=== PATIENT | male | born 1965 | race American Indian/Alaskan Native ===

== ENCOUNTER 2016-10-30 09:18 | Emergency (ER) | payer OTHER ==
--- NOTE | 2016-10-30 10:07 | Emergency Department Report ---
Chief Complaint: Hyperglycemia Stated Complaint: DRY MOUTH /FATIGUE Time Seen by Provider: 10/30/16 09:57 - HPI History of Present Illness: 51-year-old -[place] male comes in for hyperglycemia. Patient reports that he starts urinating a lot and thirsty 2 weeks. He does have a past medical history of hypertension and borderline diabetes. He does report he is not very compliant on his hypertensive medicine which she is now on by systolic tenderness over by mouth daily. Blood pressure in triage is 171/113. Denies headache chest pain shortness of breathing. - Exam Vital Signs: Vital Signs 10/30/16 09:51 Temperature 98.2 F Pulse Rate 96 H Respiratory 20 Rate Blood Pressure 171/113 O2 Sat by Pulse 100 Oximetry Physical Exam: Patient alert and oriented 3. Cardio: Mild tachycardic no murmurs appreciated S1 and S2 Respiratory: Clear to auscultation bilateral Abdomen: Soft nontender nondistended normal bowel sounds Extremities: No edema appreciated MSE screening note: Focused history and physical exam performed. Due to findings the following was ordered: Patient has been evaluated by this provider and MSE. Triage protocol for hyperglycemia was initiated. Patient will be evaluated by the main ER docs. ED Disposition for MSE Condition: Stable
[2016-10-30 10:33] LABS: Basophils % (Auto) 0.7 % (0.0-1.8); Eosinophils % (Auto) 2.9 % (0.0-4.3); Hematocrit 49.2 % (35.5-45.6); Hemoglobin 16.5 gm/dl (11.8-15.2); Mean Corpuscular HGB Conc 34 % (32-34); Mean Corpuscular Hemoglobin 29 pg (28-32); Mean Corpuscular Volume 87 fl (84-94); Platelet Count 162 K/mm3 (140-440); Red Blood Count 5.64 M/mm3 (3.65-5.03); Red Cell Distribution Width 13.2 % (13.2-15.2); White Blood Count 6.7 K/mm3 (4.5-11.0)
[2016-10-30 10:43] LABS: Bacteria,Urine 1+ /HPF (Negative); Bilirubin,Urine NEG (Negative); Blood,Urine SM (Negative); Ketones,Urine TR mg/dL (Negative); Leukocyte Esterase,Urine NEG (Negative); Nitrite,Urine NEG (Negative); Protein,Urine <15 mg/dL mg/dL (Negative); Urobilinogen,Urine < 2.0 mg/dL (<2.0)
[2016-10-30 10:50] LABS: Anion Gap 24 mmol/L; B-Hydroxybutyrate 14.1 mg/dL (0.2-2.8); BUN/Creatinine Ratio 15.55; Blood Urea Nitrogen 14 mg/dL (9-20); Carbon Dioxide 21 mmol/L (22-30); Chloride 95.7 mmol/L (98-107); Glucose 433 mg/dL (75-100); Potassium 4.9 mmol/L (3.6-5.0); Sodium 136 mmol/L (137-145)
[2016-10-30] MEDS ORDERED: NACL 0.9% 1000 ML 2,000 ML ONE (10:52)
--- NOTE | 2016-10-30 11:04 | Emergency Department Report ---
ED General Adult HPI - General Chief complaint: Hyperglycemia Stated complaint: DRY MOUTH /FATIGUE Time Seen by Provider: 10/30/16 09:57 Source: patient, RN notes reviewed Mode of arrival: Ambulatory Limitations: No Limitations - History of Present Illness Initial comments: This is a 51-year-old male. He's previously unknown to me. His primary care doctor is Dr. Gama Owens. Past medical history of hypertension and diabetes. Reports taking metformin 500 mg twice daily. Patient presents to the ER complaining of hyperglycemia, increased thirst, increased urination, generalized malaise. Symptoms present for 2 weeks. Positive dry cough. No vomiting. No chest pain. No fevers or chills. No dysuria. No testicular pain. Patient reports compliance with medications. He denies dietary indiscretions. Does not recall last hemoglobin A1c. -: Gradual Severity scale (0 -10): 0 Consistency: constant Improves with: none Worsens with: none Associated Symptoms: cough - Related Data Home Medications Medication Instructions Recorded Confirmed Last Taken Insulin Glargine,Hum.rec.anlog 30 unit SQ QHS 08/18/13 08/18/13 08/15/13 [Lantus Solostar] Previous Rx's Medication Instructions Recorded Last Taken Type Albuterol Sulfate [Ventolin HFA] 2 puff IH Q4H PRN #1 hfa.aer.ad 04/11/15 Unknown Rx Fluticasone [Flonase] 2 spray NS QDAY #1 bottle 04/11/15 Unknown Rx Gentamicin 0.3% Ophth Soln 2 drops OP Q4H #1 bottle 04/11/15 Unknown Rx Lisinopril [Zestril TAB] 10 mg PO DAILY #30 tablet 04/11/15 Unknown Rx Sulfamethoxazole/Trimethoprim 1 each PO BID #20 tablet 04/11/15 Unknown Rx [Bactrim DS TAB] Allergies Allergy/AdvReac Type Severity Reaction Status Date / Time No Known Allergies Allergy Verified 08/18/13 05:47 ED Review of Systems ROS: Stated complaint: DRY MOUTH /FATIGUE Other details as noted in HPI Constitutional: malaise. denies: fever Eyes: denies: vision change ENT: denies: epistaxis Respiratory: denies: cough Cardiovascular: denies: chest pain Endocrine: increased thirst, increased urine Gastrointestinal: denies: nausea Genitourinary: frequency Musculoskeletal: denies: back pain Skin: denies: lesions Neurological: weakness Psychiatric: denies: anxiety ED Past Medical Hx - Past Medical History Hx Hypertension: Yes Hx Diabetes: Yes - Surgical History Additional Surgical History: L. knee replaced - Social History Smoking Status: Unknown if ever smoked - Medications Home Medications: Home Medications Medication Instructions Recorded Confirmed Last Taken Type Insulin Glargine,Hum.rec.anlog 30 unit SQ QHS 08/18/13 08/18/13 08/15/13 History [Lantus Solostar] Albuterol Sulfate [Ventolin HFA] 2 puff IH Q4H PRN #1 hfa.aer.ad 04/11/15 Unknown Rx Fluticasone [Flonase] 2 spray NS QDAY #1 bottle 04/11/15 Unknown Rx Gentamicin 0.3% Ophth Soln 2 drops OP Q4H #1 bottle 04/11/15 Unknown Rx Lisinopril [Zestril TAB] 10 mg PO DAILY #30 tablet 04/11/15 Unknown Rx Sulfamethoxazole/Trimethoprim 1 each PO BID #20 tablet 04/11/15 Unknown Rx [Bactrim DS TAB] ED Physical Exam - General Limitations: No Limitations General appearance: alert, in no apparent distress - Head Head exam: Present: atraumatic, normocephalic - Eye Eye exam: Present: normal appearance, PERRL, EOMI. Absent: nystagmus - ENT ENT exam: Present: normal exam, normal orophraynx, mucous membranes moist, normal external ear exam - Neck Neck exam: Present: normal inspection, full ROM. Absent: tenderness, meningismus - Respiratory Respiratory exam: Present: normal lung sounds bilaterally. Absent: respiratory distress, wheezes, rales, rhonchi, stridor, chest wall tenderness - Cardiovascular Cardiovascular Exam: Present: regular rate, normal rhythm, normal heart sounds. Absent: bradycardia, tachycardia, irregular rhythm, systolic murmur, diastolic murmur, rubs, gallop - GI/Abdominal GI/Abdominal exam: Present: soft, normal bowel sounds. Absent: distended, tenderness, guarding, rebound, rigid, pulsatile mass - Rectal Rectal exam: Present: deferred - Extremities Exam Extremities exam: Present: normal inspection, full ROM, normal capillary refill. Absent: tenderness, pedal edema, joint swelling, calf tenderness - Back Exam Back exam: Present: normal inspection, full ROM. Absent: tenderness, CVA tenderness (R), CVA tenderness (L), muscle spasm, paraspinal tenderness, vertebral tenderness - Neurological Exam Neurological exam: Present: alert, oriented X3, normal gait, other (Extraocular movements intact. Tongue midline. No facial droop. Facial sensation intact to light touch in the V1, V2, V3 distribution bilaterally. 5 and 5 strength in 4 extremities.. Sensation is intact to light touch in 4 extremities.). Absent : motor sensory deficit - Psychiatric Psychiatric exam: Present: normal affect, normal mood - Skin Skin exam: Present: warm, dry, intact, normal color. Absent: rash ED Course Vital Signs 10/30/16 10/30/16 10/30/16 09:51 10:19 10:30 Temperature 98.2 F Pulse Rate 96 H 85 Respiratory 20 11 L 14 Rate Blood Pressure 171/113 166/110 Blood Pressure 195/107 [Left] O2 Sat by Pulse 100 94 Oximetry 10/30/16 10/30/16 10/30/16 10:32 11:00 11:30 Temperature Pulse Rate 89 81 Respiratory 12 14 Rate Blood Pressure 172/105 162/102 Blood Pressure [Left] O2 Sat by Pulse 96 98 Oximetry 10/30/16 10/30/16 10/30/16 12:00 12:30 13:00 Temperature Pulse Rate Respiratory 15 19 10 L Rate Blood Pressure 168/103 164/104 162/102 Blood Pressure [Left] O2 Sat by Pulse 98 99 97 Oximetry 10/30/16 13:30 Temperature Pulse Rate Respiratory 18 Rate Blood Pressure 152/97 Blood Pressure [Left] O2 Sat by Pulse Oximetry - Reevaluation(s) Reevaluation #1: 10/30/16 11:27 Differential diagnosis: Hyperglycemia, diabetic ketoacidosis, hyperosmolar state , bronchitis, viral syndrome, pneumonia Assessment and plan: 51-year-old male with hyperglycemia, cough, nonfocal physical exam, vital signs unremarkable with the exception of elevated blood pressure, which is asymptomatic. Laboratory studies not consistent with diabetic ketoacidosis. He will be given IV fluids, IV insulin. He is instructed to follow up with his outpatient primary care doctor for further evaluation and management for his elevated blood pressure, and hyperglycemia. X-ray of the chest was negative. Reevaluation #2: 10/30/16 13:17 X-ray of the chest is negative. Repeat Accu-Chek improved. Hypertension improved. Patient feels improved. He will be discharged. Instructed to follow up with primary care doctor. Return precautions are reviewed. ED Medical Decision Making - Lab Data Result diagrams: 10/30/16 10:14 10/30/16 10:14 Vital Signs 10/30/16 10/30/16 10/30/16 09:51 10:19 10:30 Temperature 98.2 F Pulse Rate 96 H 85 Respiratory 20 11 L 14 Rate Blood Pressure 171/113 166/110 Blood Pressure 195/107 [Left] O2 Sat by Pulse 100 94 Oximetry 10/30/16 10/30/16 10:32 11:00 Temperature Pulse Rate 89 81 Respiratory 12 Rate Blood Pressure 172/105 Blood Pressure [Left] O2 Sat by Pulse 96 Oximetry Lab Results 10/30/16 10/30/16 10/30/16 Range/Units 09:55 10:14 10:14 WBC 6.7 (4.5-11.0) K/mm3 RBC 5.64 H (3.65-5.03) M/mm3 Hgb 16.5 H (11.8-15.2) gm/dl Hct 49.2 H (35.5-45.6) % MCV 87 (84-94) fl MCH 29 (28-32) pg MCHC 34 (32-34) % RDW 13.2 (13.2-15.2) % Plt Count 162 (140-440) K/mm3 Lymph % (Auto) 36.3 H (13.4-35.0) % [place] % (Auto) 7.5 H (0.0-7.3) % Eos % (Auto) 2.9 (0.0-4.3) % Baso % (Auto) 0.7 (0.0-1.8) % Lymph # 2.4 (1.2-5.4) K/mm3 [place] # 0.5 (0.0-0.8) K/mm3 Eos # 0.2 (0.0-0.4) K/mm3 Baso # 0.0 (0.0-0.1) K/mm3 Seg Neutrophils % 52.6 (40.0-70.0) % Seg Neutrophils # 3.5 (1.8-7.7) K/mm3 VBG pH (7.320-7.420) Sodium 136 L (137-145) mmol/L Potassium 4.9 (3.6-5.0) mmol/L Chloride 95.7 L (98-107) mmol/L Carbon Dioxide 21 L (22-30) mmol/L Anion Gap 24 mmol/L BUN 14 (9-20) mg/dL Creatinine 0.9 (0.8-1.5) mg/dL Estimated GFR > 60 ml/min BUN/Creatinine Ratio 15.55 % Glucose 433 H (75-100) mg/dL POC Glucose 400 H (70-105) Calcium 9.0 (8.4-10.2) mg/dL Urine Color (Yellow) Urine Turbidity (Clear) Urine pH (5.0-7.0) Ur Specific [place] (1.003-1.030) Urine Protein (Negative) mg/dL Urine Glucose (UA) (Negative) mg/dL Urine Ketones (Negative) mg/dL Urine Blood (Negative) Urine Nitrite (Negative) Urine Bilirubin (Negative) Urine Urobilinogen (<2.0) mg/dL Ur Leukocyte Esterase (Negative) Urine WBC (Auto) (0.0-6.0) /HPF Urine RBC (Auto) (0.0-6.0) /HPF Urine Bacteria (Auto) (Negative) /HPF Ketones 14.1 H (0.2-2.8) mg/dL 10/30/16 10/30/16 Range/Units 10:14 10:30 WBC (4.5-11.0) K/mm3 RBC (3.65-5.03) M/mm3 Hgb (11.8-15.2) gm/dl Hct (35.5-45.6) % MCV (84-94) fl MCH (28-32) pg MCHC (32-34) % RDW (13.2-15.2) % Plt Count (140-440) K/mm3 Lymph % (Auto) (13.4-35.0) % [place] % (Auto) (0.0-7.3) % Eos % (Auto) (0.0-4.3) % Baso % (Auto) (0.0-1.8) % Lymph # (1.2-5.4) K/mm3 [place] # (0.0-0.8) K/mm3 Eos # (0.0-0.4) K/mm3 Baso # (0.0-0.1) K/mm3 Seg Neutrophils % (40.0-70.0) % Seg Neutrophils # (1.8-7.7) K/mm3 VBG pH 7.364 (7.320-7.420) Sodium (137-145) mmol/L Potassium (3.6-5.0) mmol/L Chloride (98-107) mmol/L Carbon Dioxide (22-30) mmol/L Anion Gap mmol/L BUN (9-20) mg/dL Creatinine (0.8-1.5) mg/dL Estimated GFR ml/min BUN/Creatinine Ratio % Glucose (75-100) mg/dL POC Glucose (70-105) Calcium (8.4-10.2) mg/dL Urine Color Yellow (Yellow) Urine Turbidity Clear (Clear) Urine pH 5.0 (5.0-7.0) Ur Specific [place] 1.028 (1.003-1.030) Urine Protein <15 mg/dl (Negative) mg/dL Urine Glucose (UA) >=500 (Negative) mg/dL Urine Ketones Tr (Negative) mg/dL Urine Blood Sm (Negative) Urine Nitrite Neg (Negative) Urine Bilirubin Neg (Negative) Urine Urobilinogen < 2.0 (<2.0) mg/dL Ur Leukocyte Esterase Neg (Negative) Urine WBC (Auto) 1.0 (0.0-6.0) /HPF Urine RBC (Auto) 1.0 (0.0-6.0) /HPF Urine Bacteria (Auto) 1+ (Negative) /HPF Ketones (0.2-2.8) mg/dL - Radiology Data Radiology results: report reviewed, image reviewed X-ray of the chest negative for acute disease Critical care attestation.: If time is entered above; I have spent that time in minutes in the direct care of this critically ill patient, excluding procedure time. ED Disposition Clinical Impression: Hyperglycemia, Elevated blood pressure Disposition: DISCHARGED TO HOME OR SELFCARE Is pt being admited?: No Does the pt Need Aspirin: No Condition: Poor Instructions: Hypertension (ED), Diabetic Hyperglycemia (ED) Additional Instructions: Continue current outpatient medications. Follow-up with your primary care doctor within the next week to 10 days to have your blood pressure medications and diabetic medications adjusted. Long-term complications of hypertension and diabetes includes stroke, heart attack, disability, , paralysis, permanent loss of quality of life. Please refer to the [place] [employer] website, which can be found online, for help and assistance with modifying diet so blood sugar stays within normal limits. Return to the ER right away fevers or chills, chest pain or shortness of breath , intractable nausea or vomiting, inability to tolerate liquid feeds. Referrals: PRIMARY CARE, [Primary Care Provider] - 3-5 Days GAMA OWENS MD [Staff Physician] - 3-5 Days
--- NOTE | 2016-10-30 11:50 | XRay Report ---
CHEST ONE VIEW INDICATION: Cough, hyperglycemia. COMPARISON: None similar. FINDINGS: Portable, single, frontal chest radiograph demonstrates normal cardiomediastinal silhouette. Slight aortic knob calcifications. Clear, well-expanded lungs. Intact bones. Extrinsic EKG leads. CONCLUSION: No acute disease in the chest. Thank you for the opportunity to participate in this patient's care.
[2016-10-30] MEDS ORDERED: NACL 0.9% 500 ML IV SCH (12:00)
[2016-10-30 13:49] VITALS: BP 152/97
== END 2016-10-30 13:54 | disposition home or self-care (01) ==
LOC: ED 09:18
DX: E11.65 Type 2 diabetes mellitus with hyperglycemia (principal); I10 Essential (primary) hypertension
CPT/HCPCS: 36415; 71010; 80048; 81001; 82010; 82805; 82962; 85025; 96361; 96374; 99284; J7030; J1815

== ENCOUNTER 2019-04-07 21:07 | Emergency (ER) | payer OTHER ==
--- NOTE | 2019-04-07 21:23 | Event Note ---
ED Screening Note Date of service: 04/07/19 Time: 21:18 ED Screening Note: This is a 53 y.o. M. that presents to the ER with low back pain radiating down right leg x 3 days. Reports back injury while at work. Current smoker PMH of HTN, ETOH, & DM2 This initial assessment/diagnostic orders/clinical plan/treatment(s) is/are subject to change based on patients health status, clinical progression and re- assessment by fellow clinical providers in the ED. Further treatment and workup at subsequent clinical providers discretion. Patient/guardian urged not to elope from the ED as their condition may be serious if not clinically assessed and managed. Initial orders include: XR of L-spine
--- NOTE | 2019-04-07 22:39 | XRay Report ---
Lumbosacral spine, 3 views INDICATION: Back pain FINDINGS: The vertebral body heights and disc spaces are preserved. No fracture or spondylolisthesis. No spurring or arthritis. No bony abnormality identified. Impression: Normal lumbar spine radiograph. Signer Name: Cory Brown MD Signed: 04/07/2019 10:35 PM Workstation Name: [id number]
[2019-04-07] MEDS ORDERED: TORADOL IM ONE (23:33)
--- NOTE | 2019-04-07 23:37 | Emergency Department Report ---
ED Back Pain/Injury HPI - General Chief Complaint: Back Pain/Injury Stated Complaint: BACK PROBLEM Time Seen by Provider: 04/07/19 21:18 Source: patient Limitations: No Limitations - History of Present Illness Initial Comments: This is a 53 y.o. M. that presents to the ER with low back pain radiating down right leg x 3 days. Reports back injury while at work. Current smoker PMH of HTN, ETOH, & DM2 MD Complaint: back pain Onset/Timin -: days(s) Radiation: none Severity scale (0 -10): 10 Quality: sharp Consistency: intermittent Improves With: none Worsens With: none Associated Symptoms: denies other symptoms - Related Data Home Medications Medication Instructions Recorded Confirmed Last Taken Insulin Glargine,Hum.rec.anlog 30 unit SQ QHS 08/18/13 08/18/13 08/15/13 [Lantus Solostar] Previous Rx's Medication Instructions Recorded Last Taken Type Albuterol Sulfate [Ventolin HFA] 2 puff IH Q4H PRN #1 hfa.aer.ad 04/11/15 Unknown Rx Fluticasone [Flonase] 2 spray NS QDAY #1 bottle 04/11/15 Unknown Rx Gentamicin 0.3% Ophth Soln 2 drops OP Q4H #1 bottle 04/11/15 Unknown Rx Lisinopril [Zestril TAB] 10 mg PO DAILY #30 tablet 04/11/15 Unknown Rx Sulfamethoxazole/Trimethoprim 1 each PO BID #20 tablet 04/11/15 Unknown Rx [Bactrim DS TAB] Ibuprofen [Motrin 600 MG tab] 600 mg PO Q8H PRN #15 tablet 04/07/19 Unknown Rx Allergies Allergy/AdvReac Type Severity Reaction Status Date / Time No Known Allergies Allergy Verified 08/18/13 05:47 ED Review of Systems ROS: Stated complaint: BACK PROBLEM Other details as noted in HPI Comment: All other systems reviewed and negative ED Past Medical Hx - Past Medical History Previous Medical History?: Yes Hx Hypertension: Yes Hx Diabetes: Yes - Surgical History Past Surgical History?: Yes Additional Surgical History: B/L. knee replaced - Social History Smoking Status: Current Every Day Smoker Substance Use Type: None - Medications Home Medications: Home Medications Medication Instructions Recorded Confirmed Last Taken Type Insulin Glargine,Hum.rec.anlog 30 unit SQ QHS 08/18/13 08/18/13 08/15/13 History [Lantus Solostar] Albuterol Sulfate [Ventolin HFA] 2 puff IH Q4H PRN #1 hfa.aer.ad 04/11/15 Unknown Rx Fluticasone [Flonase] 2 spray NS QDAY #1 bottle 04/11/15 Unknown Rx Gentamicin 0.3% Ophth Soln 2 drops OP Q4H #1 bottle 04/11/15 Unknown Rx Lisinopril [Zestril TAB] 10 mg PO DAILY #30 tablet 04/11/15 Unknown Rx Sulfamethoxazole/Trimethoprim 1 each PO BID #20 tablet 04/11/15 Unknown Rx [Bactrim DS TAB] Ibuprofen [Motrin 600 MG tab] 600 mg PO Q8H PRN #15 tablet 04/07/19 Unknown Rx ED Physical Exam - General Limitations: No Limitations General appearance: alert, in no apparent distress - Head Head exam: Present: atraumatic, normocephalic - Eye Eye exam: Present: normal appearance - ENT ENT exam: Present: mucous membranes moist - Neck Neck exam: Present: normal inspection, full ROM - Extremities Exam Extremities exam: Present: normal inspection, full ROM - Back Exam Back exam: Present: full ROM - Neurological Exam Neurological exam: Present: alert, oriented X3, normal gait - Psychiatric Psychiatric exam: Present: normal affect, normal mood - Skin Skin exam: Present: warm, dry, intact, normal color. Absent: rash ED Course Vital Signs 04/07/19 21:10 Temperature 98.4 F Pulse Rate 109 H Respiratory 18 Rate Blood Pressure 174/112 O2 Sat by Pulse 98 Oximetry ED Medical Decision Making - Radiology Data Radiology results: report reviewed Patient: ISHA CHEN MR#: [id number] [id number] : 1965 Acct:[id number] Age/Sex: 53 / M ADM Date: 04/07/19 Loc: ED Attending Dr: Ordering Physician: ESTEBAN DELA CRUZ Date of Service: 04/07/19 Procedure(s): XR spine lumbosacral 2-3V Accession Number(s): [id number] cc: ESTEBAN DELA CRUZ Fluoro Time In Minutes: Lumbosacral spine, 3 views INDICATION: Back pain FINDINGS: The vertebral body heights and disc spaces are preserved. No fracture or spondylolisthesis. No spurring or arthritis. No bony abnormality identified. Impression: Normal lumbar spine radiograph. Signer Name: Cory Brown MD Signed: 04/07/2019 10:35 PM Workstation Name: [id number] Transcribed By: MELISSA Dictated By: Cory Brown MD Electronically Authenticated By: Cory Brown MD Signed Date/Time: 04/07/192234 DD/ 34 TD/TT: - Medical Decision Making This is a 53 y.o. M. that presents to the ER with low back pain radiating down right leg x 3 days. Reports back injury while at work. Current smoker PMH of HTN, ETOH, & DM2 Patient be given a Toradol injection 30 mg IM. X-ray of the back shows no acute abnormalities. Patient be discharged home with ibuprofen and to follow-up with his primary care provider. Patient requesting morphine and Percocet for pain management. Patient reports that he will report me to the board since I will not give him narcotics. Critical care attestation.: If time is entered above; I have spent that time in minutes in the direct care of this critically ill patient, excluding procedure time. ED Disposition Clinical Impression: Back pain Qualifiers: Back pain location: low back pain Chronicity: acute Back pain laterality: unspecified Sciatica presence: without sciatica Qualified Code(s): M54.5 - Low back pain Disposition: DC-01 TO HOME OR SELFCARE Is pt being admited?: No Does the pt Need Aspirin: No Condition: Stable Instructions: Back Pain (ED) Additional Instructions: Take ibuprofen as needed for back pain. Follow-up with her primary care provider if his symptoms persist or gets worse. Prescriptions: Ibuprofen [Motrin 600 MG tab] 600 mg PO Q8H PRN #15 tablet PRN Reason: Pain Referrals: [facility] [Outside] - 3-5 Days
[2019-04-08 00:21] VITALS: BP 146/83
== END 2019-04-08 00:24 | disposition home or self-care (01) ==
LOC: ED 21:07
DX: M54.5 Low back pain (principal); F17.200 Nicotine dependence, unspecified, uncomplicated; I10 Essential (primary) hypertension; Z79.899 Other long term (current) drug therapy; Z79.4 Long term (current) use of insulin; Z96.653 Presence of artificial knee joint, bilateral
CPT/HCPCS: 72100; 96372; 99283; J1885

== ENCOUNTER 2019-04-13 23:53 | Emergency (ER) | payer SELFPAY ==
[2019-04-14] MEDS ORDERED: IBUPROFEN PO ONE (01:37)
--- NOTE | 2019-04-14 01:41 | Emergency Department Report ---
ED Back Pain/Injury HPI - General Chief Complaint: Back Pain/Injury Stated Complaint: BACK PAIN Time Seen by Provider: 04/14/19 01:18 Source: patient Limitations: No Limitations - History of Present Illness Initial Comments: Patient is a 54-year-old Male with past history of diabetes who is presenting with right-sided lower back pain. Pain isn't present for the last 2-3 days. First worse with movement is better with rest. Patient was here several days ago and states that the Motrin and he was given is not helping. Patient has some radiation of the pain down his right leg. This is no mention of any bowel or bladder dysfunction. Patient is afebrile. Patient denies any falls or trauma. - Related Data Home Medications Medication Instructions Recorded Confirmed Last Taken Insulin Glargine,Hum.rec.anlog 30 unit SQ QHS 08/18/13 08/18/13 08/15/13 [Lantus Solostar] Previous Rx's Medication Instructions Recorded Last Taken Type Albuterol Sulfate [Ventolin HFA] 2 puff IH Q4H PRN #1 hfa.aer.ad 04/11/15 Unknown Rx Fluticasone [Flonase] 2 spray NS QDAY #1 bottle 04/11/15 Unknown Rx Gentamicin 0.3% Ophth Soln 2 drops OP Q4H #1 bottle 04/11/15 Unknown Rx Lisinopril [Zestril TAB] 10 mg PO DAILY #30 tablet 04/11/15 Unknown Rx Sulfamethoxazole/Trimethoprim 1 each PO BID #20 tablet 04/11/15 Unknown Rx [Bactrim DS TAB] Ibuprofen [Motrin 600 MG tab] 600 mg PO Q8H PRN #15 tablet 04/07/19 Unknown Rx methOCARBAMOL [Robaxin TAB] 500 mg PO Q6H PRN #14 tablet 04/14/19 Unknown Rx Allergies Allergy/AdvReac Type Severity Reaction Status Date / Time No Known Allergies Allergy Verified 08/18/13 05:47 ED Review of Systems ROS: Stated complaint: BACK PAIN Other details as noted in HPI Comment: All other systems reviewed and negative ED Past Medical Hx Family history: no significant family history ED Back Pain Physical Exam - Exam General: Vital signs noted. No distress. Alert and acting appropriately. Back/Abdomen: Yes Perilumbar Tenderness (right sided), No Abdominal Tenderness, No Perithoracic Tenderness, No Sacroiliac Tenderness, No Flank Tenderness, No Straight Leg Raise Pain Neuro: Yes Normal Sensation, Yes Normal DTR's, Yes Normal Gait, No Motor Weakness ED Course Vital Signs 04/14/19 00:06 Temperature 98.1 F Pulse Rate 103 H Respiratory 18 Rate Blood Pressure 140/96 O2 Sat by Pulse 95 Oximetry ED Medical Decision Making - Medical Decision Making Patient is a 54-year-old male whose presenting with right-sided paralumbar pain. Patient has radiation of pain to the buttock. Patient likely with sciatica. Patient referred to orthopedics. Patient will have a muscle relaxant added to his regimen. Critical care attestation.: If time is entered above; I have spent that time in minutes in the direct care of this critically ill patient, excluding procedure time. ED Disposition Clinical Impression: Sciatica Qualifiers: Laterality: right Qualified Code(s): M54.31 - Sciatica, right side Disposition: TO HOME OR SELFCARE Is pt being admited?: No Does the pt Need Aspirin: No Condition: Stable Instructions: Lumbar Radiculopathy (ED), Arthralgia (ED) Referrals: SCOTT SETHI MD [Staff Physician] - 3-5 Days Time of Disposition: 01:40
[2019-04-14 02:05] VITALS: BP 139/76
== END 2019-04-14 02:08 | disposition home or self-care (01) ==
LOC: ED 23:53
DX: M54.31 Sciatica, right side (principal); E11.9 Type 2 diabetes mellitus without complications; Z79.4 Long term (current) use of insulin; Z79.899 Other long term (current) drug therapy
CPT/HCPCS: 99282